=== PATIENT | female | born 1995 | race Hispanic/Latino ===

== ENCOUNTER 2023-05-03 09:27 | Outpatient (CLI) | payer OTHER | END 2023-05-03 09:28 | disposition home or self-care (01) | LOC: CSHULT 09:27 | PROVIDERS: ATTEND Family Medicine | DX: Z34.02 Encounter for supervision of normal first pregnancy, second trimester (principal); Z3A.20 20 weeks gestation of pregnancy | CPT/HCPCS: 76805 ==

== ENCOUNTER 2023-09-17 07:54 | Inpatient (IN) | payer MEDICAID, OTHER ==
[2023-09-17] MEDS ORDERED: Lidocaine 2% MPF 10 ML AMP (For Epidural Use) ONE (08:00)
[2023-09-17] MEDS ORDERED: Bupivacaine 0.25% HCL 30 ML VIAL ONE (08:00)
[2023-09-17] MEDS ORDERED: Ibuprofen 800 MG TAB PO PRN (11:02)
[2023-09-17] MEDS ORDERED: hydrALAZINE 20 MG/ML VIAL SLOW IVP PRN (11:02)
[2023-09-17] MEDS ORDERED: Methylergonovine 0.2 MG/ML VIAL IM PRN (11:02)
[2023-09-17] MEDS ORDERED: Diphenoxylate HCl/Atropine Tablet PO PRN (11:02)
[2023-09-17] MEDS ORDERED: Ondansetron PF 4 MG/2 ML Vial IVP PRN ×4 (11:02→21:47)
[2023-09-17] MEDS ORDERED: Acetaminophen 500 MG TAB PO PRN (11:02)
[2023-09-17] MEDS ORDERED: Carboprost 250 MCG/ML AMP IM PRN (11:02)
[2023-09-17] MEDS ORDERED: Tranexamic Acid 1,000 MG/10 ML VIAL IVP PRN (11:02)
[2023-09-17] MEDS ORDERED: Misoprostol 200 MCG TAB PR PRN (11:02)
[2023-09-17] MEDS ORDERED: HYDROcodone/Acetaminophen 5/325 mg Tablet PO PRN (11:02)
[2023-09-17] MEDS ORDERED: fentaNYL 50 mcg/mL 1 mL Vial SLOW IVP PRN ×2 (11:02→21:47)
[2023-09-17] MEDS ORDERED: Lidocaine 1% (PF) 30 ML VIAL SC PRN (11:02)
[2023-09-17] MEDS ORDERED: Promethazine HCl 25 MG/ML VIAL IM PRN ×3 (11:02→21:47)
[2023-09-17] MEDS ORDERED: Oxytocin 30 units/NS 500 ML 500 ML IV SCH ×2 (11:15)
[2023-09-17 11:50] LABS: Hematocrit 36.5 % (34.9-44.5); Hemoglobin 13.3 g/dL (12.0-15.5); Mean Corpuscular HGB CONC 36.4 g/dL (32.0-36.0); Mean Corpuscular Hemoglobin 30.9 pg (27.0-33.0); Mean Corpuscular Volume 84.7 fl (81.6-98.3); Mean Platelet Volume 9.9 fl (7.4-10.4); Platelet Count 310 10x3/uL (150-450); RBC Distribution Width 13.4 % (11.5-14.5); Red Blood Cell (RBC) Count 4.31 10x6/uL (3.90-5.03); White Blood Cell (WBC) Count 9.6 10x3/uL (3.5-10.5)
[2023-09-17 12:11] VITALS: BMI 40.0
[2023-09-17] MEDS: Lactated Ringer's 1,000 ML IV SCH (12:15)
[2023-09-17] MEDS: Oxytocin 30 units/NS 500 ML 500 ML IV SCH (12:16)
[2023-09-17 12:37] LABS: HBSAg Index 0.23 S/CO (0-0.99); Hep B Surf Ag - L&D Non-Reactive S/CO (NonReactive)
[2023-09-17 12:38] LABS: Syphilis Antibody Nonreactive (Nonreactive); Syphilis Antibody Index 0.05 S/CO (<1.00 Non-Reactive)
[2023-09-17] MEDS ORDERED: ePHEDrine Sulfate 50 MG/10 ML VIAL SLOW IVP PRN (13:41)
[2023-09-17] MEDS ORDERED: Moisturizing Cream (Eucerin) 113 GM JAR TOP PRN ×2 (13:41→21:47)
[2023-09-17] MEDS ORDERED: diphenhydrAMINE 50 MG/ML VIAL IVP PRN ×2 (13:41→21:47)
[2023-09-17] MEDS ORDERED: Naloxone HCl 0.4 mg/ml Vial IVP PRN ×4 (13:41→21:47)
[2023-09-17] MEDS ORDERED: Lactated Ringer's 500 ML IV PRN (13:41)
[2023-09-17] MEDS ORDERED: Acetaminophen 325 MG TAB PO PRN (13:41)
[2023-09-17] MEDS ORDERED: Communication Order-Pharmacy FS SCH ×2 (13:45→22:00)
[2023-09-17] MEDS ORDERED: fentaNYL 2 mcg/Ropivacaine 0.2% Epidural 100 ML CADD EPIDURAL SCH (13:45)
[2023-09-17 19:06] LABS: HIV (1/2) Antibody/Antigen Non-Reactive (NonReactive); HIV 1/2 INDEX 0.06 S/CO (<1.00)
[2023-09-17] MEDS ORDERED: Naloxone HCl 0.4 mg/ml Vial IV PRN (21:47)
[2023-09-17] MEDS ORDERED: Meperidine HCl/PF 25 MG (1 mL) VIAL SLOW IVP PRN (21:47)
[2023-09-17] MEDS ORDERED: Promethazine HCl 25 MG SUPP PR PRN (21:47)
[2023-09-17] MEDS ORDERED: HYDROmorphone 0.5 MG/0.5 ML SYRINGE SLOW IVP PRN (21:47)
[2023-09-17] MEDS ORDERED: Ketorolac Tromethamine 30 MG (1 mL) VIAL IVP SCH (22:00)
[2023-09-18] MEDS: Ketorolac Tromethamine 30 MG (1 mL) VIAL IVP PRN (05:29)
[2023-09-18] MEDS: Oxytocin 30 units/NS 500 ML 500 ML ONE (06:17)
[2023-09-18] MEDS: Azithromycin 500 MG VIAL ONE (07:14)
[2023-09-18] MEDS: CEFAZOLIN 2 GM VIAL ONE (07:14)
[2023-09-18] MEDS: fentaNYL/Ropivacaine Epidural 100 ML ONE (07:14)
[2023-09-18] MEDS: Dexmedetomidine 200 MCG/2 ML VIAL ONE (07:15)
[2023-09-18] MEDS: Morphine PF 10 MG/10 ML VIAL ONE (07:15)
[2023-09-18] MEDS: Ondansetron PF 4 MG/2 ML Vial ONE (07:15)
[2023-09-18] MEDS: Lidocaine 2% MPF 10 ML AMP (For Epidural Use) ONE (07:15)
[2023-09-18] MEDS: Dexamethasone 4 mg/ml Vial ONE (07:15)
[2023-09-18] MEDS: Oxytocin 10 UNITS/ML VIAL ONE (07:15)
[2023-09-18] MEDS: fentaNYL 50 mcg/mL 1 mL Vial ONE (07:16)
[2023-09-18] MEDS: Ketorolac Tromethamine 30 MG (1 mL) VIAL ONE (07:16)
[2023-09-18] MEDS: Midazolam HCl 2 mg/2 ml Vial ONE (07:16)
[2023-09-18] MEDS: HYDROcodone/Acetaminophen 5/325 mg Tablet PO PRN (10:23)
[2023-09-18] MEDS ORDERED: Boostrix 0.5 ML (Tdap) VIAL (>/=7 yrs of age) IM ONE (19:06)
[2023-09-18] MEDS ORDERED: Lanolin Ointment 7 GM TUBE TOP PRN (19:06)
[2023-09-18] MEDS ORDERED: hydrALAZINE 20 MG/ML VIAL SLOW IVP PRN (19:06)
[2023-09-18] MEDS ORDERED: Promethazine HCl 25 MG/ML VIAL IM PRN (19:06)
[2023-09-18] MEDS ORDERED: Ondansetron PF 4 MG/2 ML Vial IVP PRN (19:06)
[2023-09-18] MEDS ORDERED: Bisacodyl 10 MG SUPP PR PRN (19:06)
[2023-09-18] MEDS ORDERED: Meperidine HCl/PF 25 MG (1 mL) VIAL IM PRN (19:06)
[2023-09-18] MEDS: Simethicone Chewable 80 MG TAB PO PRN (19:32)
[2023-09-19] MEDS: Ferrous Sulfate 325 MG TAB PO SCH (01:30)
[2023-09-19] MEDS: Docusate 100 MG CAP PO SCH (01:30)
[2023-09-19 04:26] LABS: Hematocrit 31.4 % (34.9-44.5); Mean Corpuscular Hemoglobin 30.6 pg (27.0-33.0); Mean Corpuscular Volume 87.2 fl (81.6-98.3); Mean Platelet Volume 10.1 fl (7.4-10.4); Platelet Count 310 10x3/uL (150-450); RBC Distribution Width 13.7 % (11.5-14.5); White Blood Cell (WBC) Count 14.4 10x3/uL (3.5-10.5)
[2023-09-19] MEDS: Ibuprofen 800 MG TAB PO SCH (05:36)
[2023-09-19] MEDS: Prenatal Vitamin 1 TAB PO SCH (08:43)
[2023-09-19] MEDS: HYDROcodone/Acetaminophen 5/325 mg Tablet PO PRN (13:47)
[2023-09-20 07:52] VITALS: BP 131/70; TEMP 98.1
== END 2023-09-20 18:45 | disposition home or self-care (01) | DRG 788 ==
LOC: CSHLD 10:37 → CSHPP 09-18 01:53
PROVIDERS: ADMIT Family Medicine; ATTEND Family Medicine
PROC: 10D00Z1 Extraction of Products of Conception, Low, Open Approach (ICD-10-PCS; principal; 2023-09-17)
PROC: 10H07YZ Insertion of Other Device into Products of Conception, Via Natural or Artificial Opening (ICD-10-PCS; 2023-09-17)
DX: O48.0 Post-term pregnancy (principal); O34.13 Maternal care for benign tumor of corpus uteri, third trimester; D25.9 Leiomyoma of uterus, unspecified; Z3A.40 40 weeks gestation of pregnancy; Z37.0 Single live birth; O76 Abnormality in fetal heart rate and rhythm complicating labor and delivery; O66.40 Failed trial of labor, unspecified; O99.214 Obesity complicating childbirth; E66.01 Morbid (severe) obesity due to excess calories
CPT/HCPCS: 36415; 51702; 85027; 86780; 86850; 86900; 86901; 87340; 87389; 99285; J0665; J1100; J1885; J2250; J2274; J2405; J2590; J3010; J7120